=== PATIENT | male | born 1975 | race Asian ===

== ENCOUNTER 2024-01-15 10:28 | Day surgery (SDC) | payer OTHER ==
[2024-01-11 14:01] VITALS: BMI 27.3
[2024-01-15 11:24] VITALS: RESP 16
[2024-01-15 11:39] VITALS: PULSE 55; TEMP 98
[2024-01-15 12:03] VITALS: BP 94/50
== END 2024-01-15 12:13 | disposition home or self-care (01) ==
LOC: FASU-ENDO 10:28
PROVIDERS: ATTEND Internal Medicine Gastroenterology
PROC: 0DJD8ZZ Inspection of Lower Intestinal Tract, Via Natural or Artificial Opening Endoscopic (ICD-10-PCS; principal; 2024-01-15 11:11)
DX: Z12.11 Encounter for screening for malignant neoplasm of colon (principal)